=== PATIENT | female | born 1995 | race Hispanic/Latino ===

== ENCOUNTER 2018-10-01 13:48 | Outpatient (CLI) | payer OTHER ==
--- NOTE | 2018-10-01 15:13 | CT ---
CT BRAIN PERFORMED WITHOUT CONTRAST ENHANCEMENT: History: Post-traumatic subarachnoid hemorrhage. Comparison: None. Previous exam was reportedly done at [facility]. FINDINGS: The ventricular and cisternal system is within normal limits. No signs of intracerebral hemorrhage or extraaxial fluid collections. No subarachnoid blood is identified. Mastoid air cells and visualized sinuses are clear. IMPRESSION: No acute intracranial abnormalities. POS: [facility]
== END 2018-10-01 13:49 | disposition home or self-care (01) ==
LOC: TBSIIMAG 13:48
PROVIDERS: ATTEND Neurological Surgery
DX: S06.6X9A Traumatic subarachnoid hemorrhage with loss of consciousness of unspecified duration, initial encounter (principal)
CPT/HCPCS: 70450